=== PATIENT | female | born 1970 | race Caucasian/White ===

== ENCOUNTER 2024-04-30 07:30 | Outpatient (RCR) | payer BC, SELFPAY | END 2024-06-25 15:19 | disposition home or self-care (01) | PROVIDERS: Visit Provider Orthopaedic Surgery | DX: M77.11 Lateral epicondylitis, right elbow (principal); G56.01 Carpal tunnel syndrome, right upper limb; M25.521 Pain in right elbow; Z51.89 Encounter for other specified aftercare | CPT/HCPCS: 97035; 97110; 97140; 97166; X5282 ==

== ENCOUNTER 2024-08-01 12:30 | Outpatient (RCR) | payer BC, SELFPAY | END 2024-11-06 14:11 | disposition home or self-care (01) | PROVIDERS: Visit Provider Family Medicine Sports Medicine | DX: M51.36 Other intervertebral disc degeneration, lumbar region (principal); Z51.89 Encounter for other specified aftercare | CPT/HCPCS: 97110; 97140; 97161 ==